=== PATIENT | female | born 1960 | race Caucasian/White ===

== ENCOUNTER → 2019-09-07 | Outpatient (CLI) | payer MEDICARE, BC, OTHER ==
[~2019-09-07] VITALS: Ht 152.4 cm; Wt 60.8 kg
[~2019-09-07] MED LIST: ASPERCREME1 EACH TRANSDERM; ASPIR 8181 MG PO; ATORVASTATIN CA40 MG PO; BENTYL 10 MG CA10 M1 PO; BRIVIACT100 MG PO; CALCIUM 600 +1 EAC8 PO; CARISOPRODOL 3350 MG PO; ENSURE PLUS237 ML PO; FLORASTOR250 MG PO; HYDROCODONE-AP1 EAC6 PO; LEXAPRO20 MG PO; LISINOPRIL10 MG PO; MELATONIN5 M1 PO; MULTIVITAMINS1 EAC7 PO; PREMARIN0.45 MG PO; PREMARIN0.9 M1 PO; REMERON15 M2 PO; SEROQUEL 25 MG25 M2 PO; SOMA350 MG PO; VANCOCIN 250 M250 M1 PO; VIMPAT100 MG PO; VITAMIN B COMP1 EACH PO; VITAMIN B-1100 M1 PO; XANAX 0.5 MG0.5 MG PO
[2019-09-07 13:46] LABS: ABSOLUTE EOSINOPHILS 0.1 thou/uL (0.0-0.7); ABSOLUTE LYMPHOCYTES 2.1 thou/uL (0.8-5.3); ABSOLUTE MONOCYTES 0.5 thou/uL (0.0-1.2); ABSOLUTE NEUTROPHILS 2.6 thou/uL (1.6-8.1); BASOPHILS 0.7 %; EOSINOPHILS 2.1 %; HEMATOCRIT 38.9 % (37.0-47.0); HEMOGLOBIN 13.5 gm/dL (12.0-15.0); LYMPHOCYTES 39.4 %; MCH 32.1 pg (26.0-34.0); MCHC 34.6 g/dL (28.0-37.0); MCV 92.7 fL (80.0-100.0); MONOCYTES 9.2 %; MPV 7.6 fl. (7.2-11.1); NUCLEATED RBCS 0 /100WBC; PLATELET COUNT* 330 thou/uL (150-400); POLYS 48.6 %; RDW-CV 13.2 % (10.5-14.5); WBC 5.3 thou/uL (4.0-11.0)
[2019-09-07 13:51] LABS: APTT 23.6 Seconds (25.0-31.3)
[2019-09-07 13:55] LABS: ALBUMIN 3.9 g/dL (3.4-5.0); CALCIUM 9.4 mg/dL (8.5-10.1); CREATININE 0.8 mg/dL (0.6-1.3); POTASSIUM 4.2 mmol/L (3.5-5.1); TOTAL BILIRUBIN 0.2 mg/dL (<0.1-1.0); TOTAL PROTEIN 7.3 g/dL (6.4-8.2)
[2019-09-07 14:41] LABS: ESR (SEDRATE) 5 mm/hr (0-30)
--- NOTE | 2019-10-06 11:37 | EKG ---
[place] [address] ELECTROCARDIOGRAM REPORT Name: BURAK MCMAHAN I Room: PRE IN [facility]#: [id number] Admission: Attend Phys: Bakari Aguilar Discharge: Date of : 62 Date of Service: 09/07/19 1318 Report #: [id number] THIS REPORT FOR: //name// [facility] Test Date: 2019-09-07 Test Time: 13:18:38 Pat Name: BURAK MCMAHAN Department: Room: Gender: F Bilingual Sales Consultant: : 1960 Requested By: Steve Antony Order Number: [id number] MD: Lior Floyd Measurements Intervals [place] Rate: 69 P: 25 [place]: 161 QRS: 37 QRSD: 76 T: 56 QT: 378 QTc: 405 Interpretive Statements Sinus rhythm Compared to ECG 05/11/2017 22:52:14 Myocardial infarct finding no longer present Electronically Signed On 09-07-2019 16:43:37 CDT by Lior Floyd [email or web address] <ELECTRONICALLY SIGNED> By: Lior Floyd MD, [facility] 09/07/19 1643 1318 17 Lior Floyd MD, FACC /EPI
== END ==
LOC: M.LAB 08:00 → M.PRE 09-21 06:29 → EDSTATUS 09-21 07:28 → M.PRE 09-21 08:34
PROVIDERS: Orthopaedic Surgery
DX: I25.2 Old myocardial infarction (principal)